=== PATIENT | female | born 2000 | race American Indian/Alaskan Native ===

== ENCOUNTER 2020-03-16 11:25 | Outpatient (CLI) | payer OTHER ==
[2020-03-16 13:28] VITALS: BP 120/65
[2020-03-16 13:48] LABS: Bacteria,Urine 1+ /HPF (Negative); Bilirubin,Urine NEG (Negative); Blood,Urine SM (Negative); Color,Urine Yellow (Yellow); Mucus,Urine FEW /HPF; Protein,Urine <15 mg/dL mg/dL (Negative); Urobilinogen,Urine < 2.0 mg/dL (<2.0)
[2020-03-16] MEDS ORDERED: PROMETHAZINE 25 MG TAB PO ONE (13:57)
[2020-03-16] MEDS ORDERED: WATER FOR INJ Sterile (PF) 10 ML ONE (14:41)
[2020-03-16] MEDS ORDERED: ceFAZolin 1 GM VIAL IM SCH (15:00)
== END 2020-03-16 15:05 | disposition home or self-care (01) ==
LOC: APU 11:25 → TRG 11:25
PROVIDERS: ATTEND Obstetrics & Gynecology
DX: O26.893 Other specified pregnancy related conditions, third trimester (principal); R10.30 Lower abdominal pain, unspecified; Z3A.38 38 weeks gestation of pregnancy
CPT/HCPCS: 59025; 81001; 87086; 96372; J0690; Q0169

== ENCOUNTER 2020-03-20 05:44 | Inpatient (IN) | payer OTHER ==
[2020-03-20] MEDS ORDERED: KETOROLAC 30 MG/1 ML INJ ONE (06:58)
[2020-03-20] MEDS ORDERED: BUPIVACAINE/PF (0.5%) 5 MG/1 ML 30 ML VIAL INFILTRATI ONE (06:58)
[2020-03-20] MEDS ORDERED: ONDANSETRON 4 MG/2 ML INJ ONE (06:58)
[2020-03-20] MEDS ORDERED: dexAMETHasone 20 MG/5 ML VIAL ONE (06:58)
[2020-03-20] MEDS ORDERED: BUPIVACAINE /DEX-WATER 0.75% (2 ML) AMPULE INFILTRATI ONE (06:58)
[2020-03-20] MEDS: LACTATED RINGERS 1,000 ML IV SCH ×2 (07:30→08:53)
[2020-03-20] MEDS ORDERED: LACTATED RINGERS 1,000 ML ONE (07:31)
--- NOTE | 2020-03-20 07:47 | Anesthesia Day of Surgery ---
Anesthesia Day of Surgery - Day of Surgery Patient Examined: Yes Patient H&P Reviewed: Yes Patient is NPO: Yes Beta Blockers: No Cardiac Clearance: No Pulmonary Clearance: No Bora's Test: N/A
--- NOTE | 2020-03-20 07:48 | Anesthesia Consultation ---
Anesthesia Consult and Med Hx Date of service: 03/20/20 - Airway Anesthetic Teeth Evaluation: Good ROM Head & Neck: Adequate Mental/Hyoid Distance: Adequate Mallampati Class: Class III Intubation Access Assessment: Possibly Difficult - Pulmonary Exam CTA: Yes - Cardiac Exam Cardiac Exam: RRR - Pre-Operative Health Status ASA Pre-Surgery Classification: ASA2 Proposed Anesthetic Plan: Spinal Nerve Block: tap - Pulmonary Hx Smoking: Yes Hx Asthma: No Hx Sleep Apnea: No - Cardiovascular System Hx Hypertension: No Hx Heart Attack/AMI: No Hx Angina: No - Central Nervous System Hx Seizures: No Hx Psychiatric Problems: No - Gastrointestinal Hx Gastroesophageal Reflux Disease: No - Endocrine Hx Renal Disease: No Hx Insulin Dependent Diabetes: No Hx Non-Insulin Dependent Diabetes: No Hx Hypothyroidism: No Hx Hyperthyroidism: No - Hematic Hx Anemia: No Hx Sickle Cell Disease: No - Other Systems Hx Alcohol Use: No Hx Obesity: Yes
[2020-03-20 07:58] LABS: Basophils % (Auto) 0.3 % (0.0-1.8); Eosinophils # (Auto) 0.1 K/mm3 (0.0-0.4); Eosinophils % (Auto) 0.9 % (0.0-4.3); Hematocrit 33.1 % (30.3-42.9); Hemoglobin 11.7 gm/dl (10.1-14.3); Lymphocytes # (Auto) 1.5 K/mm3 (1.2-5.4); Lymphocytes % (Auto) 21.9 % (13.4-35.0); Mean Corpuscular HGB Conc 35 % (30-34); Mean Corpuscular Volume 85 fl (79-97); Monocytes # (Auto) 0.7 K/mm3 (0.0-0.8); Platelet Count 227 K/mm3 (140-440); Red Blood Count 3.89 M/mm3 (3.65-5.03); Red Cell Distribution Width 13.9 % (13.2-15.2)
[2020-03-20] MEDS ORDERED: HYDROmorphone 1 MG/1 ML INJ IV PRN (08:00)
[2020-03-20] MEDS ORDERED: BICITRA ORAL LIQD 30ML PO SCH (08:00)
[2020-03-20] MEDS ORDERED: NalbUPHINE 10 MG/1 ML INJ IV PRN (08:00)
[2020-03-20] MEDS ORDERED: PROMETHAZINE 25 MG RECT SUPP PR PRN (08:00)
[2020-03-20] MEDS ORDERED: ceFAZolin/Water 2 GM/20 ML 2 GM/20 ML SYRINGE IV NR (08:00)
[2020-03-20] MEDS ORDERED: PROMETHAZINE 25 MG TAB PO PRN (08:00)
[2020-03-20] MEDS ORDERED: ONDANSETRON 4 MG/2 ML INJ IV PRN (08:00)
[2020-03-20] MEDS ORDERED: FAMOTIDINE 20 MG/2 ML INJ IV SCH (08:00)
[2020-03-20] MEDS ORDERED: NALOXONE 0.4 MG/1 ML INJ IV PRN ×2 (08:00→10:00)
[2020-03-20] MEDS ORDERED: diphenhydrAMINE 50 MG/ML VIAL IV PRN (08:00)
[2020-03-20] MEDS ORDERED: METOCLOPRAMIDE 10 MG/2 ML INJ IV SCH (08:00)
[2020-03-20] MEDS ORDERED: OXYTOCIN DRIP 30,000 MILLIUNITS/500 ML BAG IV ONE (08:40)
--- NOTE | 2020-03-20 09:11 | History and Physical Report ---
History of Present Illness Date of examination: 03/20/20 Date of admission: 03/20/20 05:44 Chief complaint: Planned History of present illness: 20-year-old at 39 1 who presents for a repeat delivery. The patient's course is complicated by insufficient care during the . The patient has been incarcerated during her . She has been exposed to STD and has a history of 3 prior deliveries. She d eclines a tubal ligation. GBS is positive. Past History Past Medical History: no pertinent history Past Surgical History: section BUYING AGENT History: trichomonas Social history: single - Obstetrical History Expected Date of Delivery: 03/26/20 Actual Gestation: 39 Week(s) 1 Day(s) : 4 Para: 3 Hx # Term Pregnancies: 3 Number of Pregnancies: 0 Spontaneous Abortions: 0 Induced : 0 Number of Living Children: 3 Medications and Allergies Allergies Allergy/AdvReac Type Severity Reaction Status Date / Time No Known Allergies Allergy Verified 03/16/20 11:46 Active Meds: Active Medications Citric Acid/Sodium Citrate (Bicitra Oral Liqd 30ml) 30 ml PO ONCE PERRY Stop: 03/20/20 17:00 Last Admin: 03/20/20 08:51 Dose: 30 ml Documented by: Diphenhydramine HCl (Diphenhydramine 50 Mg/Ml Vial) 12.5 mg IV Q2H PRN PRN Reason: Itching Famotidine (Famotidine 20 Mg/2 Ml Inj) 20 mg IV ONCE PERRY Stop: 03/20/20 17:00 Last Admin: 03/20/20 08:52 Dose: 20 mg Documented by: Hydromorphone HCl (Hydromorphone 1 Mg/1 Ml Inj) 0.5 mg IV Q4H PRN PRN Reason: breakthrough pain > 7/10 Lactated Ringer's (Lactated Ringers) 1,000 mls @ 2,250 mls/hr IV PREOP PERRY Stop: 03/21/20 08:27 Last Admin: 03/20/20 08:53 Dose: 2,250 mls/hr Documented by: Cefazolin Sodium (Ancef/Sterile Water 2 Gm/20 Ml) 2 gm in 20 mls @ 80 mls/hr IV PREOP NR; Protocol Stop: 03/20/20 17:00 Metoclopramide HCl (Metoclopramide 10 Mg/2 Ml Inj) 10 mg IV ONCE PERRY Stop: 03/20/20 17:00 Last Admin: 03/20/20 08:52 Dose: 10 mg Documented by: Nalbuphine HCl (Nalbuphine 10 Mg/1 Ml Inj) 2.5 mg IV Q2H PRN PRN Reason: Itching Naloxone HCl (Naloxone 0.4 Mg/1 Ml Inj) 0.2 mg IV Q2MIN PRN PRN Reason: Res Rate </= 8 or 02 SAT < 92% Ondansetron HCl (Ondansetron 4 Mg/2 Ml Inj) 4 mg IV Q8H PRN PRN Reason: Nausea And Vomiting Promethazine HCl (Promethazine 25 Mg Tab) 25 mg PO Q6H PRN PRN Reason: Nausea And Vomiting Promethazine HCl (Promethazine 25 Mg Rect Supp) 25 mg SC Q6H PRN PRN Reason: Nausea And Vomiting Review of Systems All systems: negative Genitourinary: no vaginal bleeding, no leakage of fluid - Vital Signs Vital signs: Vital Signs Pulse BP 88 115/60 03/20/20 07:17 03/20/20 07:17 Temp Pulse Resp BP Pulse Ox 88 115/60 03/20/20 07:17 03/20/20 07:17 - Physical Exam Breasts: Positive: deferred Cardiovascular: Regular rate Lungs: Positive: Clear to auscultation Results Result Diagrams: 03/20/20 07:30 Abnormal lab results 03/20/20 Range/Units 07:30 MCHC 35 H (30-34) % Simpson % (Auto) 11.0 H (0.0-7.3) % All other labs normal. Assessment and Plan - Patient Problems (1) Previous delivery affecting Current Visit: Yes Status: Acute Plan to address problem: Admit for repeat delivery Patient has declined tubal ligation (2) Insufficient care Current Visit: Yes Status: Acute
[2020-03-20] MEDS ORDERED: WATER FOR IRRIG STERILE 1,500 ML BOTTLE IR ONE (09:18)
[2020-03-20] MEDS ORDERED: SODIUM CHLORIDE 0.9% IRR 1,500 ML BOTTLE IR ONE (09:18)
--- NOTE | 2020-03-20 09:26 | Procedure Note ---
OB Delivery Note - Delivery Date of Delivery: 03/20/20 Surgeon: RONNIE PEDRAZA Estimated blood loss: other (900ml) - Section Preop diagnosis: repeat Postop diagnosis: same section procedure: section, repeat low transverse Disposition: PACU Complications: none - Infant A at 1 minute: 8 at 5 minutes: 9 Infant Gender: Male (weight 6lbs 4oz)
--- NOTE | 2020-03-20 09:27 | Operative Report ---
Operative Report Operative Report: Date of surgery: March 20, 2020 Preoperative diagnosis: at 39+1 weeks; previous delivery; insufficient care Postoperative diagnosis: Same as above Procedure: Repeat low transverse delivery; lysis of adhesion Surgeon: Suzanne Griffiths M.D. Anesthesia: Regional Estimated blood loss:900ml Findings: liveborn male with apgars of 8 and 9, weight 6lbs 4oz Indications: 20-year-old -0-0-3 at 39+1 weeks who presents for repeat delivery. The patient has a history of 3 prior deliveries. The patient has declined tubal ligation. Procedure: The patient was taken to the operating room and given regional anesthesia without complication. She was prepped and draped in a normal sterile fashion. A Pfannenstiel skin incision was made down to layer the fascia which was nicked in the midline extended laterally with the Bovie cautery. The superior aspect of the rectus fascia was grasped with Rui clamps x2 and the rectus muscles off sharply. The muscle was adherent to the fasica. This was done in inferior fa shion as well. The rectus muscle midline and peritoneum entered bluntly. Omental adhesions were lysed that were adherent to the periotoneal surface anteriorly. An Jaydon retractor was then inserted. A bladder blade was placed. The vesicouterine peritoneum was then entered sharply with Metzenbaum scissors. A bladder flap was created digitally. A low transverse uterine incision was then made and extended digitally. There was clear fluid upon entry into the uterine cavity. The head was delivered through the incision with fundal pressure. The cord was clamped and cut x2 and infant was passed off to pediatrics. The placenta was then manually extracted. The uterus was then exteriorized and cleared of clots and debris. The uterine incision was then closed in a running locked fashion with 0 Vicryl additional imbricating stitch was applied for 2 layer closure. The posterior cul-de-sac was then copiously irrigated. The uterus was replaced back into the abdomen and pelvis were the gutters were then irrigated. The Jaydon retractor was then removed. The peritoneum was then reapproximated with 3-0 Vicryl incorporating the rectus muscle. The fascia was then closed with 0 Vicryl in a running fashion. The skin was then reapproximated with 3-0 Monocryl on a Luisito needle subcuticular fashion. Steri-Strips to place across the incision and a Crede procedures performed at the end of the surgery. A pressure dressing was applied to the incision. The surgery productive of a liveborn male infant with Apgars of apgars of 8/9 weight 6lbs 4oz. The patient was taken to the recovery room in stable condition. All sponge laps and needle counts correct x2.
--- NOTE | 2020-03-20 09:59 | Progress Note ---
Spinal Anesthesia Block - Spinal Anesthesia Block Start Time: 09:18 Stop Time: 09:40 Performed by:: MODESTO SCHERER (Gregoria SRNA) Procedure: Spinal anesthesia block is being performed for [C/S]. H&P, labs have been reviewed. Patient's questions and concerns have been answered. Informed consent has been performed. Timeout has was performed. Patient in sitting position on side of bed. Sterile prep and drape was performed. 3 mL 1% lidoca ine skin wheal at L [3]-L [4]. Needle introducer advanced. 25-gauge spinal needle advanced, unsuccessfully. Decision to attempt with CSE kit. 18-gauge Touhy epidural needle advanced to [id number] using air technique, [9cm]. 27-gauge spinal needle advanced, positive free-flowing CSF. Spinal dose of [Marcaine 12mg and Precedex 5mcg]. Epidural catheter advanced to [15] cm. [-] Aspiration, [-] test dose. Sterile dressing applied. Patient tolerated procedure well.
[2020-03-20] MEDS ORDERED: ACETAMINOPHEN 325 MG TAB PO PRN (10:00)
[2020-03-20] MEDS ORDERED: LANOLIN/ZINC/DIMETHICONE (LANSINOH) 7 GM TP PRN (10:00)
[2020-03-20] MEDS ORDERED: WITCH HAZEL/ GLYCERIN PAD TP PRN (10:00)
[2020-03-20] MEDS ORDERED: OXYTOCIN DRIP 30 UNITS/500 ML BAG IV SCH (10:00)
--- NOTE | 2020-03-20 11:50 | Progress Note ---
Regional Anesthesia Block - Regional Anesthesia Block Start Time: 10:49 Stop Time: 11:03 Performed By:: MODESTO SCHERER (Gregoria SRNA) Procedure: Patient consented for TAP block for post surgical pain management. Patient identified, monitors placed, and time out performed. Mid axillary TAP identified bilaterally via ultrasound. Skin prepped bilaterally with [chlorhexidine] and [20g stimuplex] needle advanced to the TAP. 30ml [Marcaine 0.25% with 25mcg Precedex and Decadron 4mg] injected under ultrasound guidance on the [left] side. 30ml [Marcaine 0.25% with 25mcg Precedex and Decadron 4mg] injected under ultrasound guidance on the [right] side.
[2020-03-20] MEDS ORDERED: D5W/LACTATED RINGERS 1,000 ML IV ONE (13:59)
[2020-03-20] MEDS: MORPHINE 4 MG/1 ML INJ IV PRN ×2 (14:00→19:29)
[2020-03-20] MEDS ORDERED: D5W/LACTATED RINGERS 1,000 ML IV SCH (15:00)
[2020-03-20] MEDS: KETOROLAC 30 MG/1 ML INJ IV PRN ×2 (16:38→22:42)
[2020-03-20 19:46] LABS: Hematocrit 31.8 % (30.3-42.9); Hemoglobin 10.8 gm/dl (10.1-14.3)
[2020-03-20] MEDS ORDERED: MAGNESIUM HYDROXIDE (MOM) ORAL LIQD UDC PO PRN (22:00)
[2020-03-21] MEDS: oxyCODONE /ACETAMINOPHEN 5-325MG TAB PO PRN ×3 (01:08→20:27)
[2020-03-21] MEDS: IBUPROFEN 800 MG TAB PO PRN ×2 (06:29→15:35)
[2020-03-21] MEDS: MORPHINE 4 MG/1 ML INJ IV PRN (07:43)
--- NOTE | 2020-03-21 19:24 | Progress Note ---
Assessment and Plan A: POD#1 s/p repeat at term Morbid Obesity P: Continue routine postoperative care Subjective - Subjective Date of service: 03/21/20 Principal diagnosis: s/p repeat at term, morbid obesity Interval history: Pt without unusual complaints. Patient reports: appetite normal, voiding normally, pain well controlled, flatus, bowel movement, ambulating normally : doing well Objective - Vital Signs Latest vital signs: Vital Signs Temp Pulse Resp BP Pulse Ox 03/21/20 16:22 98.0 F 69 20 101/54 96 03/21/20 08:13 97.9 F 65 18 104/52 97 03/21/20 04:17 98.0 F 71 20 99/61 97 03/21/20 00:46 98.2 F 71 20 87/44 98 03/20/20 20:44 98.2 F 64 20 93/48 97 Intake and Output 03/21/20 03/21/20 03/21/20 06:59 14:59 22:59 Intake Total 240 360 600 Balance 240 360 600 Intake: Oral 240 120 360 Intake, Free Water 240 240 Other: Total, Intake Amount 240 120 360 # Voids Void 1 1 1 # Bowel Movements 1 - Exam Breasts: Present: deferred Abdomen: Present: soft (obese ) Uterus: Present: fundal height at umbilicus Extremities: Present: edema (trace ) Incision: Present: dressed
[2020-03-22] MEDS: IBUPROFEN 800 MG TAB PO PRN (03:29)
[2020-03-22] MEDS: oxyCODONE /ACETAMINOPHEN 5-325MG TAB PO PRN (07:56)
--- NOTE | 2020-03-22 11:40 | Discharge Summary ---
Providers - Providers Date of Admission: 03/20/20 05:44 Date of discharge: 03/22/20 Attending physician: MEEK MYERS MD Primary care physician: MEEK MYERS MD Hospitalization Reason for admission: section Delivery: Procedure: repeat low transverse Procedure details: see op report Episiotomy: none Incision: normal, dry, intact Discharge diagnosis: IUP at term delivered Hospital course: Unremarkable. Pt called to nurse early in am to request urgent discharge Condition at discharge: Good Disposition: DC-01 TO HOME OR SELFCARE Plan - Discharge Medications Prescriptions: Ferrous Sulfate [Feosol 325 MG tab] 325 mg PO BID #60 tablet Ibuprofen [Motrin] 800 mg PO Q8HR PRN #30 tablet PRN Reason: Pain, Moderate (4-6) oxyCODONE /ACETAMINOPHEN [Percocet 5/325] 1 tab PO Q6HR PRN #40 tablet PRN Reason: Pain - Provider Discharge Summary Activity: routine, no sex for 6 weeks, no heavy lifting 4 weeks, no strenuous exercise Diet: routine Instructions: routine Additional instructions: [] Smoking cessation referral if applicable(refer to patient education folder for contact #) [] Refer to [facility]'s [facility] Booklet Call your doctor immediately for: * Fever > 100.5 * Heavy vaginal bleeding ( >1 pad per hour) * Severe persistent headache * Shortness of breath * Reddened, hot, painful area to leg or breast * Drainage or odor from incision. * Keep incision clean and dry at all times and follow doctor's instructions regarding bathing/showering - Follow up plan Follow up: MEEK MYERS MD [Primary Care Provider] - 6 Weeks Forms: [facility] Discharge Summary
[2020-03-22 12:41] VITALS: BP 125/63
== END 2020-03-22 13:07 | disposition home or self-care (01) | DRG 766 ==
LOC: APU 05:44 → OB 12:27
PROVIDERS: ADMIT Obstetrics & Gynecology; ATTEND Obstetrics & Gynecology
PROC: 10D00Z1 Extraction of Products of Conception, Low, Open Approach (ICD-10-PCS; principal; 2020-03-20)
DX: O34.211 Maternal care for low transverse scar from previous cesarean delivery (principal); O99.824 Streptococcus B carrier state complicating childbirth; O99.214 Obesity complicating childbirth; E66.01 Morbid (severe) obesity due to excess calories; O99.334 Smoking (tobacco) complicating childbirth; Z20.828 Contact with and (suspected) exposure to other viral communicable diseases; F17.200 Nicotine dependence, unspecified, uncomplicated; Z37.0 Single live birth; Z3A.39 39 weeks gestation of pregnancy
CPT/HCPCS: 36415; 80048; 85014; 85018; 85025; 85027; 86850; 86900; 86901; G0378; J1100; J1885; J2270; J2405; J2765; J3490; J7120; J7121; U0003

== ENCOUNTER 2020-03-23 20:53 | Emergency (ER) | payer OTHER ==
[2020-03-23 22:51] LABS: Hematocrit 32.6 % (30.3-42.9); Hemoglobin 10.9 gm/dl (10.1-14.3); Mean Corpuscular HGB Conc 33 % (30-34); Mean Corpuscular Volume 88 fl (79-97); Platelet Count 231 K/mm3 (140-440); Red Blood Count 3.71 M/mm3 (3.65-5.03); Red Cell Distribution Width 14.1 % (13.2-15.2)
[2020-03-23 23:00] LABS: BUN/Creatinine Ratio 16; Blood Urea Nitrogen 11 mg/dL (7-17); Calcium 9.4 mg/dL (8.4-10.2); Hemolysis Index 5
== END 2020-03-24 04:00 | disposition left against medical advice (07) ==
LOC: ED 20:53
DX: O90.0 Disruption of cesarean delivery wound (principal); Z53.21 Procedure and treatment not carried out due to patient leaving prior to being seen by health care provider
CPT/HCPCS: 36415; 80048; 85027